=== PATIENT | female | born 1995 | race Two or more races ===

== ENCOUNTER 2020-11-29 07:07 | Emergency (ER) | payer OTHER ==
[~2020-11-29] VITALS: Ht 157.5 cm; Wt 63.5 kg
[2020-11-29] MEDS ORDERED: Acetaminophen 500mg (ES) tab ORAL ONE (07:45)
--- NOTE | 2020-11-29 07:47 | Emergency Room Report ---
History of Present Illness General Chief Complaint: Upper Extremity Injury Source: Patient Present Illness HPI Patient is a 25-year-old female presents for increased left index finger discomfort after injury at work. Patient reports having hit her left index finger on a trash can at work. She states she had initial paresthesias and pain which had resolved subsequently. Denies any fever. Denies any neck pain. Denies any other locations of injury. No prior medical history. Had initially been having some difficulty with movement. This resolved spontaneously. Injury occurred earlier in the day. Allergies: Coded Allergies: No Known Allergies (Unverified , 11/29/20) COVID-19 Screening Contact w/high risk pt: No Experienced COVID-19 symptoms?: No COVID-19 Testing performed GREY WASHER: No Patient History Past Medical History: see triage record Last Menstrual Period: 11/01 Now: No Reviewed Nursing Documentation: PMH: Agreed; PSxH: Agreed Nursing Documentation-PM Past Medical History: No Stated History Review of Systems All Other Systems: negative except mentioned in HPI Physical Exam Vital Signs Date Time Temp Pulse Resp B/P (MAP) Pulse Ox O2 Delivery O2 Flow Rate FiO2 11/29/20 07:31 98.2 71 18 122/83 (96) 95 Room Air General Appearance: well appearing, no apparent distress, alert, GCS 15 Head: normocephalic, atraumatic ENT: hearing grossly normal, normal voice Neck: full range of motion, supple Respiratory: no respiratory distress, speaking full sentences Cardiovascular #1: normal inspection Musculoskeletal: normal inspection, digits/nails normal - No ligamentous laxity, no soft tissue swelling or abrasions noted. 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 Differential diagnosis include was not limited to fracture, contusion, dislocation, neuropraxia among others. Patient has a benign exam and does not appear to require any laboratory testing at this time. X-ray imaging was ordered due to patient's recent injury. X-ray imaging of the left upper extremity showed no evidence of acute fracture. Patient will be discharged home. Patient does not require splinting at this time. Patient was advised to take anti-inflammatory medications for the next few days and to return if any worsening of condition or other concerns. This medical record is generated with [employer] equipment planner software. There may be some equipment planner discrepancies related to use of this software Last Vital Signs Date Time Temp Pulse Resp B/P (MAP) Pulse Ox O2 Delivery O2 Flow Rate FiO2 11/29/20 07:31 98.2 71 18 122/83 (96) 95 Room Air Status: improved Disposition: HOME, SELF-CARE Condition: Stable Scripts Acetaminophen* (ACETAMINOPHEN EXTRA STRENGTH*) 500 Mg Tablet 500 MG ORAL Q8H PRN for Fever/Headache/Mild Pain, #30 TAB Prov: Sathish Mcgee MD 11/29/20 Sathish Mcgee MD Nov 29, 2020 07:47
[2020-11-29] MEDS ORDERED: ACETAMINOPHEN500 M3 ORAL (07:48)
--- NOTE | 2020-11-29 07:58 | NUR ---
ED Nurse Note: Pt walked into ED for L hand injury 2nd digit. Pt was working at [employer] this morning and hit finger on [employer]. L hand has limited mobility 3/5, no wounds or drainage. Pt is alert and ox4, ambulatory.
--- NOTE | 2020-11-29 08:00 | NUR ---
ED Nurse Note: Urine taken down to lab.
[2020-11-29 08:01] VITALS: BP 125/84
[2020-11-29 08:35] VITALS: BP 124/80
--- NOTE | 2020-11-29 08:35 | NUR ---
ER DISCHARGE NOTE: Patient is cleared to be discharged per ERMD, pt is aox4, on room air, with stable vital signs. pt was given dc and prescription instructions, pt was able to verbalize understanding, pt id band removed. pt is able to ambulate with steady gait. pt took all belongings. Pt given work comp paper.
--- NOTE | 2020-11-29 13:34 | Diagnostic Imaging Report ---
Indication: Left second digit pain Technique: 3 views of the left index finger Comparison: none Findings: No acute fracture. No dislocation. The joint spaces are preserved. Impression: Negative
== END 2020-11-29 08:35 | disposition home or self-care (01) ==
LOC: EMR 08:27
DX: S69.92XA Unspecified injury of left wrist, hand and finger(s), initial encounter (principal); W22.8XXA Striking against or struck by other objects, initial encounter; Y93.9 Activity, unspecified; Y92.9 Unspecified place or not applicable
CPT/HCPCS: 99283